=== PATIENT | female | born 1965 | race Caucasian/White ===

== ENCOUNTER 2021-02-25 19:37 | Emergency (ER) | payer OTHER ==
[~2021-02-25] VITALS: Ht 154.9 cm; Wt 59.1 kg
[2021-02-25] MEDS ORDERED: ondansetron 4mg rapidly disintigrating tab PO STA (19:43)
[2021-02-25] MEDS ORDERED: chlordiazePOXIDE 25mg capsule PO STA (19:46)
--- NOTE | 2021-02-25 19:46 | NUR ---
INFORMED DR MOSS OF THE PT IN TRIAGE, HE INSTRUCTED ME TO GIVE HER A LIBRIUM, SO ORDERED.
--- NOTE | 2021-02-25 19:54 | NUR ---
INFORMED ME THAT PHARMACY CHANGED MEDS, SO THE ATIVAN 4 MG WAS GIVEN INSTEAD.
[2021-02-25] MEDS ORDERED: LORazepam 1 MG tablet PO ONE (19:55)
[2021-02-25 20:30] LABS: BASOPHILS % (AUTO) 0.8 % (0-1); EOSINOPHILS % (AUTO) 1.3 % (0-6); HEMATOCRIT 41.8 % (35.0-45.0); HEMOGLOBIN 13.9 g/dl (12.0-16.0); LYMPHOCYTES # (AUTO) 1.1 X10'3 (1.1-4.8); LYMPHOCYTES % (AUTO) 33.8 % (21-51); MEAN CORPUSCULAR HEMOGLOBIN 30.8 PG (27.0-31.0); MEAN CORPUSCULAR HGB CONC 33.2 g/dL (33.0-36.5); MEAN CORPUSCULAR VOLUME 92.6 FL (78-98); MEAN PLATELET VOLUME 6.3 FL (7.4-10.4); MONOCYTES # (AUTO) 0.3 X10'3 (0-0.9); MONOCYTES % (AUTO) 9.3 % (2-12); NEUTROPHILS # (AUTO) 1.8 X10'3 (1.8-7.7); NEUTROPHILS % (AUTO) 54.8 % (42-75); PLATELET COUNT 180 X10'3 (140-440); RED BLOOD COUNT 4.51 X10'6 (4.20-5.60); RED CELL DISTRIBUTION WIDTH 17.4 % (11.5-14.5); WHITE BLOOD COUNT 3.3 X10'3 (4.5-11.0)
[2021-02-25 20:59] LABS: ALANINE AMINOTRANSFERASE 103 U/L (12-78); ALBUMIN 3.9 G/DL (3.4-5.0); ALKALINE PHOSPHATASE 161 IU/L (46-116); ANION GAP 10 (8-16); ASPARTATE AMINO TRANSFERASE 180 U/L (10-37); BILIRUBIN,TOTAL 0.7 MG/DL (0.1-1.0); BLOOD UREA NITROGEN 6 MG/DL (7-18); BUN/CREATININE RATIO 7.5 (6.6-38.0); CALCIUM 8.6 MG/DL (8.5-10.1); CHLORIDE 101 MMOL/L (99-107); GLUCOSE 142 MG/DL (70-104); LIPASE 78 U/L (73-393); POTASSIUM 4.4 MMOL/L (3.5-5.1); SODIUM 138 MMOL/L (135-145); TOTAL CARBON DIOXIDE 27.4 MMOL/L (24-32); TOTAL PROTEIN 7.7 G/DL (6.4-8.2); eGFR 74 ML/MIN
[2021-02-25 23:16] VITALS: BP 128/84
--- NOTE | 2021-02-25 23:17 | NUR ---
SHE SAID THE ZOFRAN TOOK HER NAUSEA AWAY. THE ATIVAN TOOK HER SHAKES DOWN QUIT A BUT. SHE SAID THE HALLUCINATIONS ARE STILL THERE AND THAT THEY HAPPEN WHEN SHE GETS UP SHE WILL SEE STARS AND THEN SEE STUFF THAT ISN'T SUPPOSE TO BE THERE.
--- NOTE | 2021-02-25 23:26 | NUR ---
MD IN TRIAGE HERE VISITING WITH THE PATIENT.
[2021-02-25] MEDS ORDERED: CHLO25CA10 PO (23:38)
== END 2021-02-25 23:46 | disposition home or self-care (01) ==
LOC: ER 19:38
DX: F10.139 Alcohol abuse with withdrawal, unspecified (principal); R44.1 Visual hallucinations; R11.0 Nausea; R25.1 Tremor, unspecified; R74.01 Elevation of levels of liver transaminase levels; Z79.899 Other long term (current) drug therapy
CPT/HCPCS: 36415; 80053; 83690; 85025; 99284

== ENCOUNTER 2021-03-22 10:49 | Emergency (ER) | payer OTHER ==
[~2021-03-22] VITALS: Ht 154.9 cm; Wt 57.7 kg
[~2021-03-22 10:49] MED LIST: CHLO25CA10 PO
[2021-03-22] MEDS ORDERED: ketorolac tromethamine 15mg/ml inj. IM ONE (11:50)
[2021-03-22] MEDS ORDERED: orphenadrine citrate 60mg/2ml inj. IM ONE (13:20)
--- NOTE | 2021-03-22 13:22 | NUR ---
CHECKING ETA FOR BED 17 MRI
[2021-03-22 14:50] VITALS: BP 158/101
[2021-03-22] MEDS ORDERED: acetaminophen 325mg tablet PO ONE (14:55)
[2021-03-22] MEDS ORDERED: HYDR-3965 PO (16:29)
[2021-03-22] MEDS ORDERED: CYCL-1 PO (16:29)
[2021-03-22] MEDS ORDERED: METH4TAB3 PO (16:29)
[2021-03-22] MEDS ORDERED: ONDA4TAB6 PO (16:29)
== END 2021-03-22 16:37 | disposition home or self-care (01) ==
LOC: ER 10:50
DX: G89.29 Other chronic pain (principal); M54.2 Cervicalgia; M54.59 Other low back pain
CPT/HCPCS: 72141; 72148; 96372; 99285; J1885

== ENCOUNTER 2021-08-26 14:11 | Emergency (ER) | payer MEDICAID, OTHER ==
[~2021-08-26] VITALS: Ht 154.9 cm; Wt 56.0 kg
[~2021-08-26 14:11] MED LIST changes: +CYCL-1 PO; +METH4TAB3 PO; +ONDA4TAB6 PO
[2021-08-26] MEDS ORDERED: ketorolac trometh. 30mg/ml inj. IM ONE (15:30)
[2021-08-26] MEDS ORDERED: HYDROcodone/acetaminophen 10/325mg tab PO ONE (15:30)
[2021-08-26] MEDS ORDERED: HYDR-3972 PO ×2 (15:42→15:45)
[2021-08-26 16:00] VITALS: BP 143/100
== END 2021-08-26 15:59 | disposition home or self-care (01) ==
LOC: ER 14:12
DX: S42.192A Fracture of other part of scapula, left shoulder, initial encounter for closed fracture (principal); S22.42XA Multiple fractures of ribs, left side, initial encounter for closed fracture; M25.512 Pain in left shoulder; Z72.89 Other problems related to lifestyle; Z79.899 Other long term (current) drug therapy; W19.XXXA Unspecified fall, initial encounter; Y93.89 Activity, other specified; Y92.89 Other specified places as the place of occurrence of the external cause; Y99.8 Other external cause status
CPT/HCPCS: 73030; 73060; 96372; 99284; J1885

== ENCOUNTER 2021-08-29 16:07 | Outpatient (CLI) | payer MEDICAID ==
[~2021-08-29 16:07] MED LIST changes: +HYDR-3972 PO
[2021-08-29 16:42] LABS: BASOPHILS % (AUTO) 0.3 % (0-1); EOSINOPHILS % (AUTO) 0.9 % (0-6); HEMATOCRIT 36.8 % (35.0-45.0); LYMPHOCYTES # (AUTO) 1.6 X10'3 (1.1-4.8); LYMPHOCYTES % (AUTO) 36.7 % (21-51); MEAN CORPUSCULAR HEMOGLOBIN 29.6 PG (27.0-31.0); MEAN CORPUSCULAR HGB CONC 32.7 g/dL (33.0-36.5); MEAN CORPUSCULAR VOLUME 90.8 FL (78-98); MEAN PLATELET VOLUME 6.9 FL (7.4-10.4); MONOCYTES # (AUTO) 0.4 X10'3 (0-0.9); MONOCYTES % (AUTO) 8.8 % (2-12); NEUTROPHILS # (AUTO) 2.3 X10'3 (1.8-7.7); NEUTROPHILS % (AUTO) 53.3 % (42-75); PLATELET COUNT 181 X10'3 (140-440); RED BLOOD COUNT 4.05 X10'6 (4.20-5.60); RED CELL DISTRIBUTION WIDTH 17.6 % (11.5-14.5); WHITE BLOOD COUNT 4.4 X10'3 (4.5-11.0)
== END 2021-08-29 23:59 | disposition home or self-care (01) ==
LOC: LAB 16:07
PROVIDERS: ATTEND Dentist
DX: M46.1 Sacroiliitis, not elsewhere classified (principal)
CPT/HCPCS: 36415; 85025

== ENCOUNTER 2022-10-29 09:46 | Outpatient (CLI) | payer MEDICAID | END 2022-10-29 23:59 | disposition home or self-care (01) | LOC: RAD 09:46 | PROVIDERS: ATTEND Family Medicine | DX: K76.89 Other specified diseases of liver (principal) | CPT/HCPCS: 76700 ==